=== PATIENT | female | born 1950 | race Caucasian/White ===

== ENCOUNTER → 2022-12-16 | Outpatient (CLI) | payer MEDICARE ==
[~2022-12-16] VITALS: Ht 149.9 cm; Wt 34.0 kg
[~2022-12-16] MED LIST: ADENOSINE IV ONE; GIVE UN DILUTED IV ONE
== END | disposition home or self-care (01) ==
LOC: XYW 07:18
PROVIDERS: ATTEND Internal Medicine
DX: I27.20 Pulmonary hypertension, unspecified (principal)
CPT/HCPCS: 78452; 93017; A9500; J0153